=== PATIENT | male | born 1960 | race African-American/Black ===

== ENCOUNTER 2021-06-12 12:15 | Inpatient (IN) | payer OTHER, MEDICAID ==
[2021-06-12] VITALS (10 sets, daily range): BP systolic 172–236; BP diastolic 111–150
[~2021-06-12] VITALS: Ht 165.1 cm; Wt 64.6 kg
[~2021-06-12 12:15] MED LIST: AMLO10TA80 MT; CALC667T6 MT; HYDR-4134 MT; HYDR100T26 PO; METO-539 MT; METO-539 PO
[2021-06-12 13:02] LABS: BASOPHILS % 0.4 % (0.0-2.0); EOSINOPHILS % 1.8 % (0.0-5.0); HEMATOCRIT. 33.2 % (42.0-52.0); HEMOGLOBIN. 10.8 g/dL (14.0-18.0); LYMPHOCYTES % 15.8 % (20.0-50.0); MEAN CORPUSCULAR HEMOGLOBIN 29.4 pg (28.0-32.0); MEAN CORPUSCULAR VOLUME 90.1 fL (80.0-94.0); MONOCYTES % 8.3 % (2.0-8.0); NEUTROPHILS % 73.7 % (40.0-76.0); PLATELET 146 x1000/uL (130-400); RED BLOOD CELL COUNT 3.69 mill/uL (4.7-6.1); RED CELL DISTRIBUTION WIDTH 18.6 % (11.6-14.6)
[2021-06-12 13:06] LABS: CHLORIDE 110 mEq/L (98-107)
[2021-06-12 13:11] LABS: ETHANOL BLOOD < 10 mg/dL
[2021-06-12] MEDS ORDERED: INSULIN REGULAR (HUMULIN R) 300UNITS/3ML VIAL IV SCH (13:30)
[2021-06-12] MEDS ORDERED: DEXTROSE 50% WATER 50ML SYRINGE IV SCH (13:30)
[2021-06-12] MEDS ORDERED: ALBUTEROL (0.083%) 2.5MG/3ML NEB HHN SCH (13:30)
[2021-06-12] MEDS ORDERED: CALCIUM CHLORIDE 1GM/10ML SYR IV SCH (13:30)
[2021-06-12] MEDS ORDERED: SODIUM BICARBONATE 8.4% 1 MEQ/ML 50ML SYR IV SCH (13:30)
[2021-06-12] MEDS ORDERED: SODIUM POLYSTYRENE SULFONATE 15 G/60 ML BOT PO NR (15:00)
[2021-06-12] MEDS ORDERED: CALCIUM CARBONATE 500MG TABLET CHEW PO SCH (17:00)
[2021-06-12 17:34] LABS: HEPATITIS B SURFACE ANTIGEN NEGATIVE
[2021-06-12] MEDS ORDERED: HYDROCODONE/ACETAMINOPHEN 5/325MG TABLET PO PRN (18:00)
[2021-06-12] MEDS ORDERED: IPRATROPIUM/ALBUTEROL 0.5-3(2.5)MG/3ML NEB HHN PRN (18:00)
[2021-06-12] MEDS ORDERED: ONDANSETRON HCL 4MG/2ML INJ IV PRN (18:00)
[2021-06-12] MEDS ORDERED: HYDROMORPHONE HCL/PF 2MG/ML CPJ IV PRN (18:00)
[2021-06-12] MEDS ORDERED: DOCUSATE SODIUM 100MG CAPSULE PO PRN (18:00)
[2021-06-12] MEDS ORDERED: CLONIDINE 0.1MG TABLET PO PRN (18:00)
[2021-06-12] MEDS ORDERED: ACETAMINOPHEN 325MG TABLET PO PRN ×2 (18:00)
[2021-06-12] MEDS: AMLODIPINE 10MG TABLET PO SCH (18:36)
[2021-06-12] MEDS: CLONIDINE 0.1MG TABLET PO SCH (18:36)
[2021-06-12] MEDS ORDERED: HYDRALAZINE HCL 50MG TABLET PO SCH (21:00)
[2021-06-12] MEDS ORDERED: NICARDIPINE 100 MG in SODIUM CHLORIDE 0.9% 60 ML IV PRN (22:15)
[2021-06-12] MEDS ORDERED: NICARDIPINE 50 MG in SODIUM CHLORIDE 0.9% 250 ML IV PRN (22:35)
[2021-06-12] MEDS: HYDRALAZINE 20MG/ML VIAL IV PRN (22:44)
[2021-06-13] VITALS (58 sets, daily range): BP systolic 122–194; BP diastolic 71–140
[2021-06-13] MEDS: LEVETIRACETAM 500MG PREMIX 100 ML IV SCH ×3 (00:14→22:08)
[2021-06-13 06:04] LABS: BASOPHILS % 0.5 % (0.0-2.0); EOSINOPHILS % 0.6 % (0.0-5.0); HEMATOCRIT. 32.5 % (42.0-52.0); HEMOGLOBIN. 10.7 g/dL (14.0-18.0); LYMPHOCYTES % 14.3 % (20.0-50.0); MEAN CORPUSCULAR HEMOGLOBIN 29.3 pg (28.0-32.0); MEAN CORPUSCULAR VOLUME 89.3 fL (80.0-94.0); MEAN PLATELET VOLUME 6.2 fl (7.4-10.4); MONOCYTES % 12.6 % (2.0-8.0); PLATELET 150 x1000/uL (130-400); RED BLOOD CELL COUNT 3.64 mill/uL (4.7-6.1); RED CELL DISTRIBUTION WIDTH 18.8 % (11.6-14.6)
[2021-06-13] MEDS: CLONIDINE 0.1MG TABLET PO SCH (06:15)
[2021-06-13 06:27] LABS: CHLORIDE 105 mEq/L (98-107)
[2021-06-13 06:46] LABS: PHOSPHORUS 6.9 mg/dL (2.5-4.9)
[2021-06-13] MEDS: CALCITRIOL 0.25MCG CAPSULE PO SCH (09:00)
[2021-06-13] MEDS: FOLIC ACID/VITAMIN B COMP W-C TABLET PO SCH (09:06)
[2021-06-13] MEDS: AMLODIPINE 10MG TABLET PO SCH (09:07)
[2021-06-13] MEDS: HYDRALAZINE HCL 100MG TABLET PO SCH ×3 (09:07→22:08)
[2021-06-13] MEDS: TAMSULOSIN HCL 0.4MG SR CAPSULE PO SCH (09:07)
[2021-06-13] MEDS: HYDRALAZINE 20MG/ML VIAL IV PRN (11:28)
[2021-06-13] MEDS: CLONIDINE 0.2MG TABLET PO SCH ×2 (13:09→22:09)
[2021-06-14] VITALS (12 sets, daily range): BP systolic 111–152; BP diastolic 58–95
[2021-06-14 05:41] LABS: BASOPHILS % 0.2 % (0.0-2.0); EOSINOPHILS % 0.7 % (0.0-5.0); HEMATOCRIT. 31.1 % (42.0-52.0); HEMOGLOBIN. 10.3 g/dL (14.0-18.0); LYMPHOCYTES % 12.2 % (20.0-50.0); MEAN CORPUSCULAR HEMOGLOBIN 29.2 pg (28.0-32.0); MEAN CORPUSCULAR VOLUME 88.1 fL (80.0-94.0); MEAN PLATELET VOLUME 6.5 fl (7.4-10.4); MONOCYTES % 11.6 % (2.0-8.0); NEUTROPHILS % 75.3 % (40.0-76.0); PLATELET 121 x1000/uL (130-400); RED BLOOD CELL COUNT 3.53 mill/uL (4.7-6.1); RED CELL DISTRIBUTION WIDTH 18.4 % (11.6-14.6)
[2021-06-14 06:15] LABS: PHOSPHORUS 7.2 mg/dL (2.5-4.9)
[2021-06-14] MEDS: HYDRALAZINE HCL 100MG TABLET PO SCH ×3 (06:21→22:00)
[2021-06-14] MEDS: CLONIDINE 0.2MG TABLET PO SCH ×3 (06:22→22:00)
[2021-06-14] MEDS: FOLIC ACID/VITAMIN B COMP W-C TABLET PO SCH (08:55)
[2021-06-14] MEDS: TAMSULOSIN HCL 0.4MG SR CAPSULE PO SCH (08:55)
[2021-06-14] MEDS: AMLODIPINE 10MG TABLET PO SCH (08:55)
[2021-06-14] MEDS: LEVETIRACETAM 500MG PREMIX 100 ML IV SCH ×2 (08:56→21:23)
[2021-06-14] MEDS: CALCITRIOL 0.25MCG CAPSULE PO SCH (09:00)
[2021-06-14] MEDS ORDERED: SODIUM POLYSTYRENE SULFONATE 15 G/60 ML BOT PO NR (09:00)
[2021-06-14 11:17] LABS: CREATINE KINASE 228 IU/L (39-308)
[2021-06-14] MEDS: CALCIUM CARBONATE 500MG TABLET CHEW PO SCH ×2 (13:31→18:30)
[2021-06-15] VITALS (9 sets, daily range): BP systolic 112–140; BP diastolic 60–85
[2021-06-15 05:57] LABS: HEMATOCRIT. 28.8 % (42.0-52.0); HEMOGLOBIN. 9.5 g/dL (14.0-18.0); MEAN CORPUSCULAR HEMOGLOBIN 29.6 pg (28.0-32.0); MEAN CORPUSCULAR VOLUME 89.2 fL (80.0-94.0); MEAN PLATELET VOLUME 7.3 fl (7.4-10.4); PLATELET 116 x1000/uL (130-400); RED BLOOD CELL COUNT 3.23 mill/uL (4.7-6.1); RED CELL DISTRIBUTION WIDTH 17.2 % (11.6-14.6)
[2021-06-15 06:15] LABS: PHOSPHORUS 6.7 mg/dL (2.5-4.9)
[2021-06-15] MEDS: HYDRALAZINE HCL 100MG TABLET PO SCH (06:17)
[2021-06-15] MEDS: CLONIDINE 0.2MG TABLET PO SCH (06:17)
[2021-06-15 08:32] LABS: PLATELET ESTIMATE SLIGHTLY DECREASED
[2021-06-15] MEDS: FOLIC ACID/VITAMIN B COMP W-C TABLET PO SCH (08:40)
[2021-06-15] MEDS: AMLODIPINE 10MG TABLET PO SCH (08:40)
[2021-06-15] MEDS: LEVETIRACETAM 500MG PREMIX 100 ML IV SCH (08:41)
[2021-06-15] MEDS: CALCIUM CARBONATE 500MG TABLET CHEW PO SCH ×2 (08:41→13:00)
[2021-06-15] MEDS: TAMSULOSIN HCL 0.4MG SR CAPSULE PO SCH (08:41)
[2021-06-15] MEDS: CALCITRIOL 0.25MCG CAPSULE PO SCH (09:00)
[2021-06-15] MEDS ORDERED: LEVE500T19 MT ×2 (13:16)
[2021-06-15] MEDS ORDERED: CALC667T6 MT (13:16)
[2021-06-15] MEDS ORDERED: HYDR100T26 PO (13:16)
[2021-06-15] MEDS ORDERED: TAMS-11 PO (13:16)
[2021-06-15] MEDS ORDERED: AMLO10TA80 MT (13:16)
[2021-06-16] MEDS ORDERED: EPOETIN ALFA-EPBX 4,000 UNIT/ML VIAL SUBCUT SCH (21:00)
== END 2021-06-15 15:30 | disposition home or self-care (01) | DRG 640 ==
LOC: ER 12:17 → EDBEDREQ 12:31 → 5EST 14:23 → EDBEDREQSVC 14:26 → EDBEDREQ 14:26 → ENRESERV 14:38 → MICUSO 22:32 → 5EST 06-13 14:20
PROVIDERS: ADMIT Internal Medicine; ATTEND Internal Medicine
PROC: 5A1D70Z Performance of Urinary Filtration, Intermittent, Less than 6 Hours Per Day (ICD-10-PCS; principal; 2021-06-12)
PROC: 5A1D70Z Performance of Urinary Filtration, Intermittent, Less than 6 Hours Per Day (ICD-10-PCS; 2021-06-14)
DX: E87.5 Hyperkalemia (principal); N18.6 End stage renal disease; I13.2 Hypertensive heart and chronic kidney disease with heart failure and with stage 5 chronic kidney disease, or end stage renal disease; S00.03XA Contusion of scalp, initial encounter; S00.12XA Contusion of left eyelid and periocular area, initial encounter; E83.39 Other disorders of phosphorus metabolism; E11.649 Type 2 diabetes mellitus with hypoglycemia without coma; D64.9 Anemia, unspecified; N40.0 Benign prostatic hyperplasia without lower urinary tract symptoms; R74.01 Elevation of levels of liver transaminase levels; R56.9 Unspecified convulsions; E83.51 Hypocalcemia; N32.0 Bladder-neck obstruction; F19.10 Other psychoactive substance abuse, uncomplicated; K21.9 Gastro-esophageal reflux disease without esophagitis; F14.90 Cocaine use, unspecified, uncomplicated; Z82.49 Family history of ischemic heart disease and other diseases of the circulatory system; Z91.15 Patient's noncompliance with renal dialysis; Z99.2 Dependence on renal dialysis; Z87.01 Personal history of pneumonia (recurrent); X58.XXXA Exposure to other specified factors, initial encounter; Y93.89 Activity, other specified; Y92.091 Bathroom in other non-institutional residence as the place of occurrence of the external cause; Y99.8 Other external cause status; I50.9 Heart failure, unspecified
CPT/HCPCS: 36415; 71045; 80048; 80053; 80320; 82330; 82550; 82962; 83880; 84100; 84484; 85025; 86705; 86709; 86803; 87340; 93005; 99291; J0360; J1170; J1815; J1953; J3490; J7050; G0480

== ENCOUNTER 2021-11-05 20:35 | Inpatient (IN) | payer OTHER, MEDICAID ==
[~2021-11-05] VITALS: Ht 167.6 cm; Wt 64.0 kg
[~2021-11-05 20:35] MED LIST changes: -AMLO10TA80 MT; +CLON0.1T PO; -HYDR-4134 MT; +METO-385 PO; -METO-539 MT; -METO-539 PO; +NIFE-32 PO; +TAMS-11 PO
[2021-11-05] MEDS ORDERED: IOHEXOL-350 100 ML BOTTLE ONE (23:17)
[2021-11-06 00:56] LABS: HEMATOCRIT. 22.7 % (42.0-52.0); HEMOGLOBIN. 7.9 g/dL (14.0-18.0); MEAN CORPUSCULAR HEMOGLOBIN 32.4 pg (28.0-32.0); MEAN CORPUSCULAR VOLUME 93.8 fL (80.0-94.0); MEAN PLATELET VOLUME 6.9 fl (7.4-10.4); PLATELET 238 x1000/uL (130-400); RED BLOOD CELL COUNT 2.42 mill/uL (4.7-6.1); RED CELL DISTRIBUTION WIDTH 15.3 % (11.6-14.6)
[2021-11-06 00:59] LABS: CHLORIDE 103 mEq/L (98-107)
[2021-11-06 01:10] LABS: ETHANOL BLOOD < 10 mg/dL
[2021-11-06 01:53] LABS: PLATELET ESTIMATE NORMAL
[2021-11-06] MEDS ORDERED: ASPIRIN 81MG TABLET PO ONE (02:15)
[2021-11-06] MEDS ORDERED: ASPIRIN 81MG TABLET PO SCH (07:45)
[2021-11-06] MEDS ORDERED: NIFEDIPINE XL 60MG TAB PO SCH (11:00)
[2021-11-06] MEDS ORDERED: ONDANSETRON HCL 4MG/2ML INJ IV PRN (11:00)
[2021-11-06 12:00] VITALS: BP 170/78
[2021-11-06] MEDS: ENOXAPARIN 30MG/0.3ML SYR SUBCUT SCH (12:11)
[2021-11-06] MEDS: CALCITRIOL 0.25MCG CAPSULE PO SCH (12:12)
[2021-11-06] MEDS: CALCIUM CARBONATE 500MG TABLET CHEW PO SCH ×3 (12:13→20:07)
[2021-11-06 13:57] VITALS: BP 170/78
[2021-11-06] MEDS ORDERED: HYDR-4135 MT (15:19)
[2021-11-06] MEDS ORDERED: AMLO2.5T45 MT (15:25)
[2021-11-06 16:00] VITALS: BP 155/86
[2021-11-06 20:00] VITALS: BP 168/91
[2021-11-06] MEDS: AMLODIPINE 10MG TABLET PO SCH (20:08)
[2021-11-06] MEDS: TAMSULOSIN HCL 0.4MG SR CAPSULE PO SCH (20:08)
[2021-11-07] VITALS: BP 131/89
[2021-11-07] MEDS: CLONIDINE 0.1MG TABLET PO PRN ×2 (01:14→05:40)
[2021-11-07 04:00] VITALS: BP 170/91
[2021-11-07 06:18] LABS: CHLORIDE 99 mEq/L (98-107)
[2021-11-07 06:20] LABS: BASOPHILS % 1.1 % (0.0-2.0); EOSINOPHILS % 1.6 % (0.0-5.0); LYMPHOCYTES % 21.5 % (20.0-50.0); MEAN CORPUSCULAR HEMOGLOBIN 32.3 pg (28.0-32.0); MEAN CORPUSCULAR VOLUME 94.2 fL (80.0-94.0); MONOCYTES % 14.5 % (2.0-8.0); NEUTROPHILS % 61.3 % (40.0-76.0); PLATELET 238 x1000/uL (130-400); RED BLOOD CELL COUNT 2.15 mill/uL (4.7-6.1); RED CELL DISTRIBUTION WIDTH 14.8 % (11.6-14.6)
[2021-11-07 06:32] LABS: HEMATOCRIT. 20.3 % (42.0-52.0)
[2021-11-07 06:37] LABS: PHOSPHORUS 4.6 mg/dL (2.5-4.9)
[2021-11-07 08:22] VITALS: BP 180/99
[2021-11-07] MEDS: ASPIRIN 81MG TABLET PO SCH (08:33)
[2021-11-07] MEDS: FOLIC ACID/VITAMIN B COMP W-C TABLET PO SCH (08:34)
[2021-11-07] MEDS: CALCITRIOL 0.25MCG CAPSULE PO SCH (08:34)
[2021-11-07] MEDS: ENOXAPARIN 30MG/0.3ML SYR SUBCUT SCH (08:35)
[2021-11-07] MEDS ORDERED: NIFEDIPINE XL 60MG TAB PO SCH (09:00)
[2021-11-07 12:00] VITALS: BP 181/100
[2021-11-07] MEDS: HYDRALAZINE HCL 25MG TABLET PO SCH ×2 (13:32→21:59)
[2021-11-07] MEDS: CALCIUM CARBONATE 500MG TABLET CHEW PO SCH ×2 (13:32→17:40)
[2021-11-07 16:00] VITALS: BP 156/98
[2021-11-07 20:00] VITALS: BP 170/88
[2021-11-07] MEDS: TAMSULOSIN HCL 0.4MG SR CAPSULE PO SCH (21:58)
[2021-11-07] MEDS: AMLODIPINE 10MG TABLET PO SCH (21:59)
[2021-11-07] MEDS: EPOETIN ALFA-EPBX 4,000 UNIT/ML VIAL SUBCUT SCH (21:59)
[2021-11-08] VITALS (10 sets, daily range): BP systolic 150–189; BP diastolic 80–110
[2021-11-08] MEDS: CLONIDINE 0.1MG TABLET PO PRN (00:15)
[2021-11-08] MEDS: HYDRALAZINE HCL 25MG TABLET PO SCH (05:21)
[2021-11-08] MEDS: CALCIUM CARBONATE 500MG TABLET CHEW PO SCH ×4 (05:23→17:40)
[2021-11-08 07:06] LABS: MEAN CORPUSCULAR HEMOGLOBIN 32.4 pg (28.0-32.0); MEAN PLATELET VOLUME 6.7 fl (7.4-10.4); PLATELET 248 x1000/uL (130-400); RED BLOOD CELL COUNT 2.13 mill/uL (4.7-6.1); RED CELL DISTRIBUTION WIDTH 14.7 % (11.6-14.6)
[2021-11-08 07:20] LABS: PHOSPHORUS 5.3 mg/dL (2.5-4.9)
[2021-11-08 08:55] LABS: HEMATOCRIT. 20.1 % (42.0-52.0); HEMOGLOBIN. 6.9 g/dL (14.0-18.0)
[2021-11-08] MEDS: ENOXAPARIN 30MG/0.3ML SYR SUBCUT SCH (09:05)
[2021-11-08] MEDS: ASPIRIN 81MG TABLET PO SCH (09:05)
[2021-11-08] MEDS: CALCITRIOL 0.25MCG CAPSULE PO SCH (09:05)
[2021-11-08] MEDS: FOLIC ACID/VITAMIN B COMP W-C TABLET PO SCH (09:05)
[2021-11-08 09:09] LABS: PLATELET ESTIMATE NORMAL
[2021-11-08] MEDS: NIFEDIPINE XL 60MG TAB PO SCH (09:54)
[2021-11-08] MEDS ORDERED: HYDRALAZINE HCL 25MG TABLET PO SCH (14:00)
[2021-11-08] MEDS: HYDRALAZINE HCL 100MG TABLET PO SCH (21:40)
[2021-11-08] MEDS: TAMSULOSIN HCL 0.4MG SR CAPSULE PO SCH (21:41)
[2021-11-09] VITALS: BP 102/65
[2021-11-09 04:00] VITALS: BP 132/81
[2021-11-09] MEDS: HYDRALAZINE HCL 100MG TABLET PO SCH ×3 (06:45→20:31)
[2021-11-09 08:00] VITALS: BP 161/84
[2021-11-09] MEDS: FOLIC ACID/VITAMIN B COMP W-C TABLET PO SCH (09:21)
[2021-11-09] MEDS: CALCITRIOL 0.25MCG CAPSULE PO SCH (09:21)
[2021-11-09] MEDS: ENOXAPARIN 30MG/0.3ML SYR SUBCUT SCH (09:22)
[2021-11-09] MEDS: NIFEDIPINE XL 60MG TAB PO SCH (09:22)
[2021-11-09] MEDS: ASPIRIN 81MG TABLET PO SCH (09:22)
[2021-11-09] MEDS: CALCIUM CARBONATE 500MG TABLET CHEW PO SCH ×3 (09:22→17:40)
[2021-11-09 12:00] VITALS: BP 180/97
[2021-11-09 12:09] LABS: BASOPHILS % 1.3 % (0.0-2.0); EOSINOPHILS % 1.4 % (0.0-5.0); HEMATOCRIT. 27.4 % (42.0-52.0); HEMOGLOBIN. 9.4 g/dL (14.0-18.0); LYMPHOCYTES % 13.1 % (20.0-50.0); MEAN CORPUSCULAR HEMOGLOBIN 32.1 pg (28.0-32.0); MEAN CORPUSCULAR VOLUME 93.3 fL (80.0-94.0); MEAN PLATELET VOLUME 6.8 fl (7.4-10.4); MONOCYTES % 12.3 % (2.0-8.0); NEUTROPHILS % 71.9 % (40.0-76.0); PLATELET 254 x1000/uL (130-400); RED BLOOD CELL COUNT 2.93 mill/uL (4.7-6.1); RED CELL DISTRIBUTION WIDTH 15.9 % (11.6-14.6)
[2021-11-09 12:34] LABS: PHOSPHORUS 4.5 mg/dL (2.5-4.9)
[2021-11-09] MEDS: CLONIDINE 0.1MG TABLET PO PRN (13:31)
[2021-11-09 16:00] VITALS: BP 135/75
[2021-11-09] MEDS ORDERED: ASPI-1406 MT (16:18)
[2021-11-09] MEDS: ACETAMINOPHEN 325MG TABLET PO PRN (20:30)
[2021-11-09] MEDS: TAMSULOSIN HCL 0.4MG SR CAPSULE PO SCH (20:31)
[2021-11-09] MEDS: EPOETIN ALFA-EPBX 4,000 UNIT/ML VIAL SUBCUT SCH (20:32)
[2021-11-10] VITALS: BP 172/101
[2021-11-10] MEDS: CLONIDINE 0.1MG TABLET PO PRN ×2 (00:40→12:18)
[2021-11-10 05:42] VITALS: BP 136/82
[2021-11-10] MEDS: HYDRALAZINE HCL 100MG TABLET PO SCH ×2 (05:44→14:43)
[2021-11-10 07:27] LABS: BASOPHILS % 0.9 % (0.0-2.0); EOSINOPHILS % 1.7 % (0.0-5.0); HEMATOCRIT. 25.8 % (42.0-52.0); LYMPHOCYTES % 17.8 % (20.0-50.0); MEAN CORPUSCULAR HEMOGLOBIN 32.5 pg (28.0-32.0); MEAN PLATELET VOLUME 6.4 fl (7.4-10.4); MONOCYTES % 14.3 % (2.0-8.0); NEUTROPHILS % 65.3 % (40.0-76.0); PLATELET 220 x1000/uL (130-400); RED BLOOD CELL COUNT 2.78 mill/uL (4.7-6.1); RED CELL DISTRIBUTION WIDTH 15.8 % (11.6-14.6)
[2021-11-10 07:32] LABS: CHLORIDE 97 mEq/L (98-107)
[2021-11-10 07:40] LABS: PHOSPHORUS 6.2 mg/dL (2.5-4.9)
[2021-11-10 08:00] VITALS: BP 159/90
[2021-11-10] MEDS: ASPIRIN 81MG TABLET PO SCH (08:16)
[2021-11-10] MEDS: NIFEDIPINE XL 60MG TAB PO SCH (08:17)
[2021-11-10] MEDS: CALCIUM CARBONATE 500MG TABLET CHEW PO SCH ×2 (08:17→12:18)
[2021-11-10] MEDS: FOLIC ACID/VITAMIN B COMP W-C TABLET PO SCH (08:17)
[2021-11-10] MEDS: ENOXAPARIN 30MG/0.3ML SYR SUBCUT SCH ×2 (08:17→08:26)
[2021-11-10] MEDS: CALCITRIOL 0.25MCG CAPSULE PO SCH (08:20)
[2021-11-10 12:00] VITALS: BP 168/90
[2021-11-10 13:52] VITALS: BP 122/67
[2021-11-10] MEDS: ACETAMINOPHEN 325MG TABLET PO PRN (14:46)
[2021-11-10 16:00] VITALS: BP 122/67
== END 2021-11-10 16:30 | disposition home or self-care (01) | DRG 67 ==
LOC: ER 20:35 → MICUSO 11-06 02:40 → EDBEDREQTM 11-06 02:43 → EDBEDREQSVC 11-06 02:43 → EDBEDREQDT 11-06 02:43 → EDBEDREQ 11-06 02:43 → 8WST 11-06 10:58
PROVIDERS: ADMIT Internal Medicine; ATTEND Internal Medicine
PROC: 5A1D70Z Performance of Urinary Filtration, Intermittent, Less than 6 Hours Per Day (ICD-10-PCS; 2021-11-06)
PROC: 30233N1 Transfusion of Nonautologous Red Blood Cells into Peripheral Vein, Percutaneous Approach (ICD-10-PCS; principal; 2021-11-08)
DX: I65.23 Occlusion and stenosis of bilateral carotid arteries (principal); N18.6 End stage renal disease; N25.81 Secondary hyperparathyroidism of renal origin; I12.0 Hypertensive chronic kidney disease with stage 5 chronic kidney disease or end stage renal disease; E83.51 Hypocalcemia; K02.9 Dental caries, unspecified; F17.210 Nicotine dependence, cigarettes, uncomplicated; R74.01 Elevation of levels of liver transaminase levels; D63.1 Anemia in chronic kidney disease; Z82.49 Family history of ischemic heart disease and other diseases of the circulatory system; Z79.899 Other long term (current) drug therapy; Z91.19 Patient's noncompliance with other medical treatment and regimen; Z99.2 Dependence on renal dialysis
CPT/HCPCS: 36415; 70496; 70498; 70551; 71045; 80048; 80053; 80320; 82962; 84100; 84484; 85025; 85044; 86850; 86900; 86920; 93005; 99285; J0885; J1650; P9016; Q9967; G0480

== ENCOUNTER 2022-02-04 02:31 | Inpatient (IN) | payer OTHER, MEDICAID ==
[~2022-02-04] VITALS: Ht 175.3 cm; Wt 54.4 kg
[2022-02-04] VITALS (11 sets, daily range): BP systolic 124–156; BP diastolic 71–111
[~2022-02-04 02:31] MED LIST changes: +AMLO2.5T45 MT; +ASPI-1406 MT; +HYDR-4135 MT; -HYDR100T26 PO
[2022-02-04] MEDS ORDERED: ALBUTEROL (0.083%) 2.5MG/3ML NEB HHN STA (03:09)
[2022-02-04] MEDS ORDERED: IPRATROPIUM BROMIDE (0.02%) 0.5MG/2.5ML NEB HHN STA (03:09)
[2022-02-04] MEDS ORDERED: METHYLPREDNISOLONE SOD SUCC 125 MG/2 ML VIAL IV STA (03:09)
[2022-02-04 03:29] LABS: BASOPHILS % 0.5 % (0.0-2.0); EOSINOPHILS % 0.6 % (0.0-5.0); HEMATOCRIT. 24.2 % (42.0-52.0); HEMOGLOBIN. 7.9 g/dL (14.0-18.0); LYMPHOCYTES % 12.7 % (20.0-50.0); MEAN CORPUSCULAR HEMOGLOBIN 33.4 pg (28.0-32.0); MEAN CORPUSCULAR VOLUME 102.5 fL (80.0-94.0); MEAN PLATELET VOLUME 6.1 fl (7.4-10.4); NEUTROPHILS % 74.2 % (40.0-76.0); PLATELET 288 x1000/uL (130-400); RED BLOOD CELL COUNT 2.36 mill/uL (4.7-6.1); RED CELL DISTRIBUTION WIDTH 15.3 % (11.6-14.6)
[2022-02-04 03:38] LABS: CHLORIDE 102 mEq/L (98-107)
[2022-02-04] MEDS ORDERED: LABETALOL 5MG/ML SYR 20 MG/4 ML SYRINGE IV ONE (04:45)
[2022-02-04] MEDS ORDERED: ONDANSETRON HCL 4MG/2ML INJ IV PRN (11:45)
[2022-02-04] MEDS ORDERED: HYDRALAZINE HCL 100MG TABLET PO NR (11:45)
[2022-02-04] MEDS ORDERED: NALOXONE HCL 0.4MG/ML VIAL IV PRN (12:15)
[2022-02-04] MEDS: NIFEDIPINE XL 60MG TAB PO SCH (13:10)
[2022-02-04] MEDS: TAMSULOSIN HCL 0.4MG SR CAPSULE PO SCH (14:50)
[2022-02-04] MEDS: HYDROCODONE/ACETAMINOPHEN 5/325MG TABLET PO PRN (14:53)
[2022-02-04 18:17] LABS: HEPATITIS B SURFACE ANTIGEN NEGATIVE
[2022-02-04] MEDS: CALCITRIOL 0.25MCG CAPSULE PO SCH (18:37)
[2022-02-04] MEDS: CALCIUM ACETATE 667MG CAPSULE PO SCH (18:38)
[2022-02-04] MEDS: CALCIUM CARBONATE 500MG TABLET CHEW PO SCH (18:38)
[2022-02-04] MEDS: HYDRALAZINE HCL 100MG TABLET PO SCH (21:00)
[2022-02-04] MEDS: EPOETIN ALFA-EPBX 4,000 UNIT/ML VIAL SUBCUT SCH (21:00)
[2022-02-04] MEDS: GUAIFENESIN 600MG ER TABLET PO SCH (21:00)
[2022-02-04] MEDS: IPRATROPIUM/ALBUTEROL 0.5-3(2.5)MG/3ML NEB HHN SCH (21:28)
[2022-02-05] VITALS (16 sets, daily range): BP systolic 126–155; BP diastolic 54–96
[2022-02-05] MEDS: IPRATROPIUM/ALBUTEROL 0.5-3(2.5)MG/3ML NEB HHN SCH ×6 (00:51→21:12)
[2022-02-05 06:57] LABS: CHLORIDE 101 mEq/L (98-107)
[2022-02-05 06:59] LABS: PHOSPHORUS 5.2 mg/dL (2.5-4.9)
[2022-02-05] MEDS: CALCIUM CARBONATE 500MG TABLET CHEW PO SCH ×3 (08:40→17:07)
[2022-02-05] MEDS: HYDRALAZINE HCL 100MG TABLET PO SCH ×2 (08:41→21:54)
[2022-02-05] MEDS: CALCITRIOL 0.25MCG CAPSULE PO SCH (08:41)
[2022-02-05] MEDS: CALCIUM ACETATE 667MG CAPSULE PO SCH ×3 (08:41→17:06)
[2022-02-05] MEDS: TAMSULOSIN HCL 0.4MG SR CAPSULE PO SCH (08:41)
[2022-02-05] MEDS: GUAIFENESIN 600MG ER TABLET PO SCH ×2 (08:41→21:54)
[2022-02-05] MEDS: NIFEDIPINE XL 60MG TAB PO SCH (08:42)
[2022-02-05] MEDS ORDERED: FLUT1DIS3 INH (14:08)
[2022-02-05] MEDS ORDERED: ALBU18HF2 IH (14:08)
[2022-02-05] MEDS: HYDROCODONE/ACETAMINOPHEN 5/325MG TABLET PO PRN ×2 (15:34→23:20)
[2022-02-05 16:21] LABS: BASOPHILS % 0.8 % (0.0-2.0); EOSINOPHILS % 1.4 % (0.0-5.0); LYMPHOCYTES % 15.9 % (20.0-50.0); MEAN CORPUSCULAR HEMOGLOBIN 32.9 pg (28.0-32.0); MEAN CORPUSCULAR VOLUME 98.2 fL (80.0-94.0); MEAN PLATELET VOLUME 6.6 fl (7.4-10.4); MONOCYTES % 14.4 % (2.0-8.0); NEUTROPHILS % 67.5 % (40.0-76.0); PLATELET 260 x1000/uL (130-400); RED CELL DISTRIBUTION WIDTH 14.8 % (11.6-14.6)
[2022-02-05 16:27] LABS: HEMATOCRIT. 20.6 % (42.0-52.0); HEMOGLOBIN. 6.9 g/dL (14.0-18.0)
[2022-02-06] VITALS (12 sets, daily range): BP systolic 119–173; BP diastolic 46–102
[2022-02-06 00:06] LABS: BASOPHILS % 0.5 % (0.0-2.0); EOSINOPHILS % 1.7 % (0.0-5.0); HEMATOCRIT. 22.7 % (42.0-52.0); HEMOGLOBIN. 7.6 g/dL (14.0-18.0); LYMPHOCYTES % 21.6 % (20.0-50.0); MEAN CORPUSCULAR HEMOGLOBIN 32.8 pg (28.0-32.0); MEAN CORPUSCULAR VOLUME 97.7 fL (80.0-94.0); MEAN PLATELET VOLUME 6.6 fl (7.4-10.4); MONOCYTES % 13.3 % (2.0-8.0); NEUTROPHILS % 62.9 % (40.0-76.0); PLATELET 261 x1000/uL (130-400); RED BLOOD CELL COUNT 2.33 mill/uL (4.7-6.1); RED CELL DISTRIBUTION WIDTH 14.4 % (11.6-14.6)
[2022-02-06] MEDS: IPRATROPIUM/ALBUTEROL 0.5-3(2.5)MG/3ML NEB HHN SCH ×6 (00:59→20:00)
[2022-02-06] MEDS: HYDROCODONE/ACETAMINOPHEN 5/325MG TABLET PO PRN ×3 (05:37→21:18)
[2022-02-06] MEDS: CALCIUM CARBONATE 500MG TABLET CHEW PO SCH ×3 (07:40→17:40)
[2022-02-06] MEDS: CALCITRIOL 0.25MCG CAPSULE PO SCH (08:55)
[2022-02-06] MEDS: CALCIUM ACETATE 667MG CAPSULE PO SCH ×3 (08:55→17:58)
[2022-02-06] MEDS: HYDRALAZINE HCL 100MG TABLET PO SCH ×2 (08:55→18:01)
[2022-02-06] MEDS: GUAIFENESIN 600MG ER TABLET PO SCH ×2 (08:56→21:18)
[2022-02-06] MEDS: NIFEDIPINE XL 60MG TAB PO SCH ×3 (08:56→21:17)
[2022-02-06] MEDS: TAMSULOSIN HCL 0.4MG SR CAPSULE PO SCH (08:56)
[2022-02-06 09:31] LABS: BASOPHILS % 0.7 % (0.0-2.0); EOSINOPHILS % 2.3 % (0.0-5.0); HEMATOCRIT. 26.5 % (42.0-52.0); LYMPHOCYTES % 16.9 % (20.0-50.0); MEAN CORPUSCULAR HEMOGLOBIN 32.4 pg (28.0-32.0); MEAN CORPUSCULAR VOLUME 95.4 fL (80.0-94.0); MEAN PLATELET VOLUME 6.3 fl (7.4-10.4); MONOCYTES % 13.8 % (2.0-8.0); NEUTROPHILS % 66.3 % (40.0-76.0); PLATELET 258 x1000/uL (130-400); RED BLOOD CELL COUNT 2.77 mill/uL (4.7-6.1); RED CELL DISTRIBUTION WIDTH 15.7 % (11.6-14.6)
[2022-02-06 09:46] LABS: PHOSPHORUS 5.3 mg/dL (2.5-4.9)
[2022-02-07] VITALS (10 sets, daily range): BP systolic 125–185; BP diastolic 75–88
[2022-02-07] MEDS: HYDRALAZINE HCL 100MG TABLET PO SCH ×3 (00:38→17:15)
[2022-02-07] MEDS: HYDROCODONE/ACETAMINOPHEN 5/325MG TABLET PO PRN ×2 (03:24→21:37)
[2022-02-07] MEDS: IPRATROPIUM/ALBUTEROL 0.5-3(2.5)MG/3ML NEB HHN SCH ×6 (04:00→19:31)
[2022-02-07 06:47] LABS: HEMATOCRIT. 25.9 % (42.0-52.0); HEMOGLOBIN. 8.9 g/dL (14.0-18.0); MEAN CORPUSCULAR HEMOGLOBIN 32.8 pg (28.0-32.0); MEAN CORPUSCULAR VOLUME 95.1 fL (80.0-94.0); MEAN PLATELET VOLUME 6.7 fl (7.4-10.4); PLATELET 267 x1000/uL (130-400); RED BLOOD CELL COUNT 2.73 mill/uL (4.7-6.1); RED CELL DISTRIBUTION WIDTH 15.4 % (11.6-14.6)
[2022-02-07 06:56] LABS: PHOSPHORUS 5.2 mg/dL (2.5-4.9)
[2022-02-07] MEDS: CALCIUM ACETATE 667MG CAPSULE PO SCH ×3 (09:17→17:15)
[2022-02-07] MEDS: CALCIUM CARBONATE 500MG TABLET CHEW PO SCH ×3 (09:17→17:16)
[2022-02-07] MEDS: CALCITRIOL 0.25MCG CAPSULE PO SCH (09:17)
[2022-02-07] MEDS: GUAIFENESIN 600MG ER TABLET PO SCH ×2 (09:18→21:36)
[2022-02-07] MEDS: TAMSULOSIN HCL 0.4MG SR CAPSULE PO SCH (09:26)
[2022-02-07] MEDS: NIFEDIPINE XL 60MG TAB PO SCH ×2 (09:26→21:37)
[2022-02-07 11:01] LABS: PLATELET ESTIMATE NORMAL
[2022-02-07] MEDS: EPOETIN ALFA-EPBX 4,000 UNIT/ML VIAL SUBCUT SCH (21:38)
[2022-02-08] VITALS (15 sets, daily range): BP systolic 151–202; BP diastolic 93–128
[2022-02-08] MEDS: HYDRALAZINE HCL 100MG TABLET PO SCH ×3 (00:49→16:26)
[2022-02-08] MEDS: IPRATROPIUM/ALBUTEROL 0.5-3(2.5)MG/3ML NEB HHN SCH ×6 (04:00→20:00)
[2022-02-08] MEDS: HYDROCODONE/ACETAMINOPHEN 5/325MG TABLET PO PRN ×3 (06:08→15:15)
[2022-02-08] MEDS: NIFEDIPINE XL 60MG TAB PO SCH ×2 (09:11→20:46)
[2022-02-08] MEDS: TAMSULOSIN HCL 0.4MG SR CAPSULE PO SCH (09:11)
[2022-02-08] MEDS: CALCIUM ACETATE 667MG CAPSULE PO SCH ×3 (09:11→18:22)
[2022-02-08] MEDS: CALCIUM CARBONATE 500MG TABLET CHEW PO SCH ×3 (09:11→18:24)
[2022-02-08] MEDS: GUAIFENESIN 600MG ER TABLET PO SCH ×2 (09:11→20:46)
[2022-02-08] MEDS: CALCITRIOL 0.25MCG CAPSULE PO SCH (09:21)
[2022-02-08] MEDS: CLONIDINE 0.1MG TABLET PO SCH (18:22)
[2022-02-09] VITALS: BP 178/92
[2022-02-09] MEDS: HYDRALAZINE HCL 100MG TABLET PO SCH ×3 (00:28→18:11)
[2022-02-09] MEDS: CLONIDINE 0.1MG TABLET PO SCH ×3 (01:37→18:11)
[2022-02-09] MEDS: HYDROCODONE/ACETAMINOPHEN 5/325MG TABLET PO PRN (02:31)
[2022-02-09 04:00] VITALS: BP 161/83
[2022-02-09] MEDS: IPRATROPIUM/ALBUTEROL 0.5-3(2.5)MG/3ML NEB HHN SCH ×5 (04:00→20:10)
[2022-02-09 08:00] VITALS: BP 140/83
[2022-02-09] MEDS: CALCIUM ACETATE 667MG CAPSULE PO SCH ×3 (08:12→18:11)
[2022-02-09] MEDS: TAMSULOSIN HCL 0.4MG SR CAPSULE PO SCH (08:13)
[2022-02-09] MEDS: NIFEDIPINE XL 60MG TAB PO SCH ×2 (08:13→20:28)
[2022-02-09] MEDS: CALCIUM CARBONATE 500MG TABLET CHEW PO SCH ×3 (08:13→18:11)
[2022-02-09] MEDS: CALCITRIOL 0.25MCG CAPSULE PO SCH (08:13)
[2022-02-09] MEDS: GUAIFENESIN 600MG ER TABLET PO SCH ×2 (08:13→20:28)
[2022-02-09 12:00] VITALS: BP 165/96
[2022-02-09 15:45] VITALS: BP 171/85
[2022-02-09 20:00] VITALS: BP 165/85
[2022-02-09] MEDS: EPOETIN ALFA-EPBX 4,000 UNIT/ML VIAL SUBCUT SCH (20:28)
[2022-02-09 21:05] LABS: HEMATOCRIT. 27.1 % (42.0-52.0); HEMOGLOBIN. 8.9 g/dL (14.0-18.0); MEAN CORPUSCULAR HEMOGLOBIN 32.2 pg (28.0-32.0); MEAN CORPUSCULAR VOLUME 98.1 fL (80.0-94.0); MEAN PLATELET VOLUME 6.5 fl (7.4-10.4); PLATELET 213 x1000/uL (130-400); RED BLOOD CELL COUNT 2.77 mill/uL (4.7-6.1); RED CELL DISTRIBUTION WIDTH 15.1 % (11.6-14.6)
[2022-02-09 21:40] LABS: PLATELET ESTIMATE NORMAL
[2022-02-10] VITALS (16 sets, daily range): BP systolic 144–188; BP diastolic 78–110
[2022-02-10] MEDS: HYDRALAZINE HCL 100MG TABLET PO SCH ×3 (01:19→17:16)
[2022-02-10] MEDS: CLONIDINE 0.1MG TABLET PO SCH ×2 (01:19→11:40)
[2022-02-10] MEDS: IPRATROPIUM/ALBUTEROL 0.5-3(2.5)MG/3ML NEB HHN SCH ×6 (04:00→20:57)
[2022-02-10] MEDS: CALCIUM CARBONATE 500MG TABLET CHEW PO SCH ×3 (08:26→17:15)
[2022-02-10] MEDS: GUAIFENESIN 600MG ER TABLET PO SCH ×2 (08:26→20:28)
[2022-02-10] MEDS: TAMSULOSIN HCL 0.4MG SR CAPSULE PO SCH (08:26)
[2022-02-10] MEDS: CALCIUM ACETATE 667MG CAPSULE PO SCH ×3 (08:26→17:15)
[2022-02-10] MEDS: NIFEDIPINE XL 60MG TAB PO SCH ×2 (08:27→20:28)
[2022-02-10] MEDS: CALCITRIOL 0.25MCG CAPSULE PO SCH (08:27)
[2022-02-10] MEDS: CLONIDINE 0.2MG TABLET PO SCH (21:39)
[2022-02-11] MEDS: HYDRALAZINE HCL 100MG TABLET PO SCH ×3 (00:06→17:59)
[2022-02-11 04:00] VITALS: BP 149/99
[2022-02-11] MEDS: IPRATROPIUM/ALBUTEROL 0.5-3(2.5)MG/3ML NEB HHN SCH ×6 (04:00→21:14)
[2022-02-11] MEDS: CLONIDINE 0.2MG TABLET PO SCH ×3 (06:02→22:00)
[2022-02-11 08:00] VITALS: BP 151/89
[2022-02-11] MEDS: GUAIFENESIN 600MG ER TABLET PO SCH ×2 (08:34→21:59)
[2022-02-11] MEDS: CALCIUM CARBONATE 500MG TABLET CHEW PO SCH ×3 (08:34→17:59)
[2022-02-11] MEDS: TAMSULOSIN HCL 0.4MG SR CAPSULE PO SCH (08:35)
[2022-02-11] MEDS: CALCIUM ACETATE 667MG CAPSULE PO SCH ×3 (08:35→17:59)
[2022-02-11] MEDS: CALCITRIOL 0.25MCG CAPSULE PO SCH (08:35)
[2022-02-11] MEDS: NIFEDIPINE XL 60MG TAB PO SCH ×2 (08:35→22:00)
[2022-02-11 12:00] VITALS: BP 145/85
[2022-02-11 16:00] VITALS: BP 141/80
[2022-02-11 16:26] LABS: HEMATOCRIT. 28.4 % (42.0-52.0); HEMOGLOBIN. 9.7 g/dL (14.0-18.0); MEAN CORPUSCULAR HEMOGLOBIN 32.8 pg (28.0-32.0); MEAN CORPUSCULAR VOLUME 96.6 fL (80.0-94.0); MEAN PLATELET VOLUME 6.6 fl (7.4-10.4); PLATELET 230 x1000/uL (130-400); RED BLOOD CELL COUNT 2.95 mill/uL (4.7-6.1); RED CELL DISTRIBUTION WIDTH 14.2 % (11.6-14.6)
[2022-02-11 16:43] LABS: PHOSPHORUS 5.7 mg/dL (2.5-4.9)
[2022-02-11 17:02] LABS: HEPATITIS B SURFACE ANTIGEN NEGATIVE
[2022-02-11 20:00] VITALS: BP 163/85
[2022-02-11 22:55] LABS: PLATELET ESTIMATE NORMAL
[2022-02-12] VITALS (15 sets, daily range): BP systolic 122–185; BP diastolic 69–109
[2022-02-12] MEDS: IPRATROPIUM/ALBUTEROL 0.5-3(2.5)MG/3ML NEB HHN SCH ×4 (00:43→21:01)
[2022-02-12] MEDS: HYDRALAZINE HCL 100MG TABLET PO SCH ×3 (01:02→16:53)
[2022-02-12] MEDS: CLONIDINE 0.2MG TABLET PO SCH ×3 (05:25→21:40)
[2022-02-12] MEDS: CALCIUM ACETATE 667MG CAPSULE PO SCH ×3 (07:50→20:47)
[2022-02-12] MEDS: CALCIUM CARBONATE 500MG TABLET CHEW PO SCH ×3 (09:51→20:47)
[2022-02-12] MEDS: ACETAMINOPHEN 325MG TABLET PO PRN ×2 (09:52→17:08)
[2022-02-12] MEDS: TAMSULOSIN HCL 0.4MG SR CAPSULE PO SCH (09:52)
[2022-02-12] MEDS: CALCITRIOL 0.25MCG CAPSULE PO SCH (09:52)
[2022-02-12] MEDS: GUAIFENESIN 600MG ER TABLET PO SCH ×2 (09:53→21:40)
[2022-02-12] MEDS: NIFEDIPINE XL 60MG TAB PO SCH ×2 (17:05→21:40)
[2022-02-13] VITALS: BP 170/105
[2022-02-13] MEDS: HYDRALAZINE HCL 100MG TABLET PO SCH ×3 (01:39→16:01)
[2022-02-13 04:00] VITALS: BP 129/72
[2022-02-13] MEDS: IPRATROPIUM/ALBUTEROL 0.5-3(2.5)MG/3ML NEB HHN SCH ×7 (04:00→21:57)
[2022-02-13] MEDS: CLONIDINE 0.2MG TABLET PO SCH ×3 (05:44→21:35)
[2022-02-13] MEDS: CALCIUM CARBONATE 500MG TABLET CHEW PO SCH ×3 (07:50→17:00)
[2022-02-13] MEDS: CALCIUM ACETATE 667MG CAPSULE PO SCH ×3 (07:50→17:00)
[2022-02-13 08:00] VITALS: BP 144/90
[2022-02-13] MEDS: TAMSULOSIN HCL 0.4MG SR CAPSULE PO SCH (09:01)
[2022-02-13] MEDS: GUAIFENESIN 600MG ER TABLET PO SCH ×2 (09:01→21:34)
[2022-02-13] MEDS: CALCITRIOL 0.25MCG CAPSULE PO SCH (09:01)
[2022-02-13] MEDS: NIFEDIPINE XL 60MG TAB PO SCH ×2 (09:01→21:35)
[2022-02-13 12:00] VITALS: BP 154/88
[2022-02-13 16:00] VITALS: BP 153/88
[2022-02-13 20:00] VITALS: BP 150/87
[2022-02-13] MEDS: HYDROCODONE/ACETAMINOPHEN 5/325MG TABLET PO PRN (23:45)
[2022-02-14] VITALS (17 sets, daily range): BP systolic 123–154; BP diastolic 70–96
[2022-02-14] MEDS: IPRATROPIUM/ALBUTEROL 0.5-3(2.5)MG/3ML NEB HHN SCH ×2 (01:22→08:57)
[2022-02-14] MEDS: HYDRALAZINE HCL 100MG TABLET PO SCH ×3 (03:09→15:38)
[2022-02-14] MEDS: CLONIDINE 0.2MG TABLET PO SCH ×3 (06:00→21:10)
[2022-02-14] MEDS: CALCIUM ACETATE 667MG CAPSULE PO SCH (08:18)
[2022-02-14] MEDS: CALCIUM CARBONATE 500MG TABLET CHEW PO SCH ×3 (08:18→15:38)
[2022-02-14] MEDS: CALCITRIOL 0.25MCG CAPSULE PO SCH (08:19)
[2022-02-14] MEDS: NIFEDIPINE XL 60MG TAB PO SCH ×2 (08:19→21:00)
[2022-02-14] MEDS: TAMSULOSIN HCL 0.4MG SR CAPSULE PO SCH (08:19)
[2022-02-14] MEDS: GUAIFENESIN 600MG ER TABLET PO SCH ×2 (08:19→21:10)
[2022-02-14] MEDS ORDERED: NALOXONE HCL 0.4MG/ML VIAL IV PRN (09:30)
[2022-02-14 15:25] LABS: HEMATOCRIT. 27.8 % (42.0-52.0); HEMOGLOBIN. 9.4 g/dL (14.0-18.0); MEAN CORPUSCULAR HEMOGLOBIN 32.3 pg (28.0-32.0); MEAN CORPUSCULAR VOLUME 95.6 fL (80.0-94.0); MEAN PLATELET VOLUME 6.3 fl (7.4-10.4); PLATELET 191 x1000/uL (130-400); RED BLOOD CELL COUNT 2.91 mill/uL (4.7-6.1); RED CELL DISTRIBUTION WIDTH 14.5 % (11.6-14.6)
[2022-02-14 15:32] LABS: PHOSPHORUS 4.7 mg/dL (2.5-4.9)
[2022-02-14 16:32] LABS: PLATELET ESTIMATE NORMAL
[2022-02-15] VITALS: BP 102/80
[2022-02-15] MEDS: HYDRALAZINE HCL 100MG TABLET PO SCH ×2 (01:00→21:25)
[2022-02-15] MEDS: HYDROCODONE/ACETAMINOPHEN 5/325MG TABLET PO PRN ×4 (02:52→23:34)
[2022-02-15 04:00] VITALS: BP 113/72
[2022-02-15] MEDS: CLONIDINE 0.2MG TABLET PO SCH (06:01)
[2022-02-15] MEDS ORDERED: HYDRALAZINE HCL 50MG TABLET PO SCH (09:00)
[2022-02-15] MEDS: CALCITRIOL 0.25MCG CAPSULE PO SCH (09:01)
[2022-02-15] MEDS: NIFEDIPINE XL 60MG TAB PO SCH (09:01)
[2022-02-15] MEDS: TAMSULOSIN HCL 0.4MG SR CAPSULE PO SCH (09:01)
[2022-02-15] MEDS: CALCIUM CARBONATE 500MG TABLET CHEW PO SCH ×2 (12:50→17:36)
[2022-02-15] MEDS: CLONIDINE 0.1MG TABLET PO SCH ×2 (12:55→21:25)
[2022-02-15 15:33] LABS: BASOPHILS % 0.8 % (0.0-2.0); EOSINOPHILS % 2.5 % (0.0-5.0); HEMATOCRIT. 28.2 % (42.0-52.0); HEMOGLOBIN. 9.7 g/dL (14.0-18.0); LYMPHOCYTES % 13.8 % (20.0-50.0); MEAN CORPUSCULAR HEMOGLOBIN 32.8 pg (28.0-32.0); MEAN CORPUSCULAR VOLUME 95.5 fL (80.0-94.0); MEAN PLATELET VOLUME 6.4 fl (7.4-10.4); MONOCYTES % 13.3 % (2.0-8.0); NEUTROPHILS % 69.6 % (40.0-76.0); PLATELET 185 x1000/uL (130-400); RED BLOOD CELL COUNT 2.95 mill/uL (4.7-6.1); RED CELL DISTRIBUTION WIDTH 14.6 % (11.6-14.6)
[2022-02-15 15:44] LABS: PHOSPHORUS 7.1 mg/dL (2.5-4.9)
[2022-02-15 20:00] VITALS: BP 189/99
[2022-02-16] VITALS (16 sets, daily range): BP systolic 119–233; BP diastolic 80–138
[2022-02-16] MEDS ORDERED: IPRATROPIUM/ALBUTEROL 0.5-3(2.5)MG/3ML NEB HHN PRN (04:30)
[2022-02-16] MEDS: CLONIDINE 0.1MG TABLET PO SCH (05:36)
[2022-02-16] MEDS: CALCIUM CARBONATE 500MG TABLET CHEW PO SCH ×3 (07:50→17:34)
[2022-02-16] MEDS: HYDRALAZINE HCL 100MG TABLET PO SCH ×2 (09:00→21:35)
[2022-02-16] MEDS: TAMSULOSIN HCL 0.4MG SR CAPSULE PO SCH (09:14)
[2022-02-16] MEDS: NIFEDIPINE XL 60MG TAB PO SCH (09:15)
[2022-02-16] MEDS ORDERED: CLONIDINE 0.1MG TABLET PO SCH (09:15)
[2022-02-16] MEDS: CALCITRIOL 0.25MCG CAPSULE PO SCH (09:15)
[2022-02-16] MEDS: CLONIDINE 0.2MG TABLET PO SCH ×2 (13:34→21:35)
[2022-02-16] MEDS: CLONIDINE 0.1MG TABLET PO PRN (15:09)
[2022-02-17] VITALS: BP 178/97
[2022-02-17] MEDS: CLONIDINE 0.2MG TABLET PO SCH ×3 (00:19→22:00)
[2022-02-17] MEDS: CLONIDINE 0.1MG TABLET PO PRN (01:49)
[2022-02-17] MEDS: ACETAMINOPHEN 325MG TABLET PO PRN (01:49)
[2022-02-17] MEDS: HYDRALAZINE HCL 100MG TABLET PO SCH ×2 (09:46→21:00)
[2022-02-17] MEDS: CALCITRIOL 0.25MCG CAPSULE PO SCH (09:46)
[2022-02-17] MEDS: TAMSULOSIN HCL 0.4MG SR CAPSULE PO SCH (09:46)
[2022-02-17] MEDS: NIFEDIPINE XL 60MG TAB PO SCH (09:46)
[2022-02-17 20:00] VITALS: BP 168/91
[2022-02-18] VITALS (15 sets, daily range): BP systolic 132–196; BP diastolic 70–106
[2022-02-18] MEDS: ACETAMINOPHEN 325MG TABLET PO PRN (00:21)
[2022-02-18] MEDS: CLONIDINE 0.2MG TABLET PO SCH ×2 (06:43→14:54)
[2022-02-18] MEDS: CALCITRIOL 0.25MCG CAPSULE PO SCH (08:32)
[2022-02-18] MEDS: TAMSULOSIN HCL 0.4MG SR CAPSULE PO SCH (08:32)
[2022-02-18] MEDS: HYDRALAZINE HCL 100MG TABLET PO SCH (08:33)
[2022-02-18] MEDS: NIFEDIPINE XL 60MG TAB PO SCH (08:33)
[2022-02-18] MEDS ORDERED: NIFEDIPINE XL 60MG TAB PO SCH (18:00)
== END 2022-02-18 16:20 | DRG 189 ==
LOC: ER 02:31 → 8WST 05:16 → EDBEDREQ 05:22 → EDBEDREQTM 05:22 → ENRESERV 09:52 → 6EST 02-11 22:35
PROVIDERS: ADMIT Internal Medicine; ATTEND Internal Medicine
PROC: 5A1D70Z Performance of Urinary Filtration, Intermittent, Less than 6 Hours Per Day (ICD-10-PCS; 2022-02-04)
PROC: 5A1D70Z Performance of Urinary Filtration, Intermittent, Less than 6 Hours Per Day (ICD-10-PCS; 2022-02-05)
PROC: 30233N1 Transfusion of Nonautologous Red Blood Cells into Peripheral Vein, Percutaneous Approach (ICD-10-PCS; principal; 2022-02-06)
PROC: 5A1D70Z Performance of Urinary Filtration, Intermittent, Less than 6 Hours Per Day (ICD-10-PCS; 2022-02-07)
PROC: 5A1D70Z Performance of Urinary Filtration, Intermittent, Less than 6 Hours Per Day (ICD-10-PCS; 2022-02-08)
PROC: 5A1D70Z Performance of Urinary Filtration, Intermittent, Less than 6 Hours Per Day (ICD-10-PCS; 2022-02-10)
PROC: 5A1D70Z Performance of Urinary Filtration, Intermittent, Less than 6 Hours Per Day (ICD-10-PCS; 2022-02-12)
PROC: 5A1D70Z Performance of Urinary Filtration, Intermittent, Less than 6 Hours Per Day (ICD-10-PCS; 2022-02-14)
PROC: 5A1D70Z Performance of Urinary Filtration, Intermittent, Less than 6 Hours Per Day (ICD-10-PCS; 2022-02-16)
PROC: 5A1D70Z Performance of Urinary Filtration, Intermittent, Less than 6 Hours Per Day (ICD-10-PCS; 2022-02-18)
DX: J96.00 Acute respiratory failure, unspecified whether with hypoxia or hypercapnia (principal); N18.6 End stage renal disease; I13.2 Hypertensive heart and chronic kidney disease with heart failure and with stage 5 chronic kidney disease, or end stage renal disease; J84.9 Interstitial pulmonary disease, unspecified; N25.81 Secondary hyperparathyroidism of renal origin; E87.70 Fluid overload, unspecified; Z20.822 Contact with and (suspected) exposure to COVID-19; F17.210 Nicotine dependence, cigarettes, uncomplicated; E83.39 Other disorders of phosphorus metabolism; D63.1 Anemia in chronic kidney disease; K21.9 Gastro-esophageal reflux disease without esophagitis; M10.9 Gout, unspecified; E83.51 Hypocalcemia; F19.10 Other psychoactive substance abuse, uncomplicated; I50.9 Heart failure, unspecified; N40.0 Benign prostatic hyperplasia without lower urinary tract symptoms; J44.9 Chronic obstructive pulmonary disease, unspecified; Z99.2 Dependence on renal dialysis; Z82.49 Family history of ischemic heart disease and other diseases of the circulatory system; Z91.15 Patient's noncompliance with renal dialysis
CPT/HCPCS: 36415; 71045; 73502; 80048; 80053; 82330; 83605; 83735; 84100; 84145; 84484; 85025; 86705; 86709; 86803; 86850; 86900; 86920; 87340; 87426; 90935; 93005; 94640; 97110; 97116; 97162; 97166; 97530; 97535; 99291; C9803; J0885; J2405; J2930; J3490; P9016